=== PATIENT | female | born 1980 | race Two or more races ===

== ENCOUNTER 2017-08-19 21:15 | Emergency (ER) | payer MEDICAID, OTHER ==
--- NOTE | 2017-08-19 21:53 | EDPHY ---
H & P Time Seen by Provider: 08/19/17 21:49 HPI/ROS: CHIEF COMPLAINT: Right foot and tibia pain post glass table falling HISTORY OF PRESENT ILLNESS: 36-year-old female with up-to-date tetanus arrives via private vehicle complaining of right pretibial pain and right dorsal foot pain after heavy glass table fell and broke on these areas. She is able to bear weight albeit with pain. Denies paresthesia. Denies sensory or motor deficit. PHYSICAL EXAM (Prior to examination, patient consented to physical exam, hands were washed and my usual and customary physical exam procedures followed) 1) GENERAL: Well-developed, well-nourished, alert and oriented. Appears uncomfortable 2) HEAD: Normocephalic 3) HEENT: Pupils equal, round, reactive to light bilaterally. 4) LUNGS: Breathing comfortably. 5) MUSCULOSKELETAL: Right pretibial multiple superficial abrasions. Right dorsal foot multiple superficial abrasions. Tender to palpation pretibial region. No visible glass. Normal anatomic landmarks. Tender to palpation dorsal midfoot. No visible deformity or angulation. proximal tibia and fibula nontender .5th MT nontender negative Mcdowell test, compartments soft 6) SKIN: Multiple abrasions 7) VASCULAR: DP,PT pulses and cap refill present and brisk DIFFERENTIAL DIAGNOSIS: in no particular order including but not limited to fracture, sprain, compartment syndrome Procedure: Crutches indications for crutch use discussed with patient. Patient fitted for crutches by ER staff. Observed ambulating with crutches. I think the patient has the capacity to safely use crutches. Usual and customary crutch walking precautions provided Procedure: Splint A suzanne boot splint was applied by ER microwave technician. After application of the splint I returned and re-examined the patient. The splint was adequately immobilizing the joint and distal to the splint the patient's circulation and sensation were intact. Patient shows no signs of compartment syndrome. Was given orthopedic precautions. Smoking Status: Never smoked Constitutional: Initial Vital Signs Temperature (C) 36.7 C 08/19/17 21:21 Heart Rate 90 08/19/17 21:21 Respiratory Rate 16 08/19/17 21:21 Blood Pressure 134/93 H 08/19/17 21:21 O2 Sat (%) 96 08/19/17 21:21 O2 Delivery Mode Room Air Allergies/Adverse Reactions: No Known Allergies Allergy (Unverified 08/19/17 21:25) Home Medications: Medication Instructions Recorded NK [No Known Home Meds] 08/19/17 MDM/Departure - MDM Imaging Results: Imaging Impressions Foot X-Ray 08/19/17 21:50 Impression: No definite fracture. Clinical correlation is recommended involving the third toe. Results called and discussed with Dulce LICONA on 08/19/2017 at 22:30.. Tibia/Fibula X-Ray 08/19/17 21:51 Impression: Negative for fracture. Images reviewed by myself Medications Given: Discontinued Medications Hydrocodone Bitart/Acetaminophen (Fults 5/325) 1 tab PO EDNOW ONE Stop: 08/19/17 22:46 Last Admin: 08/19/17 22:52 Dose: 1 tab Hydrocodone Bitart/Acetaminophen (Fults 5/325mg Prepack#6) 1 btl TAKEHOME EDNOW ONE Stop: 08/19/17 22:47 Last Admin: 08/19/17 22:52 Dose: 1 btl Ibuprofen (Motrin) 800 mg PO EDNOW ONE Stop: 08/19/17 22:46 Last Admin: 08/19/17 22:52 Dose: 800 mg ED Course/Re-evaluation: 10:00 p.m.: Will obtain imaging studies of the patient's foot and tibia and fibula to evaluate for osseous injury and for radiopaque foreign body. She has multiple superficial abrasions none of which require closure. 10:40 p.m.: Care of patient under supervision of secondary supervising physician Dr Fulton . Patient was re-evaluated with serial examinations. On initial evaluation she had no complaints of pain to her toes. I discussed the radiology findings with the patient and with the the staff radiologist showing abnormality on one view of the 3rd toe. I re-evaluated the patient at 10:40 pm. And discussed the imaging results and re-examined her foot. At this time she states that she has pain from her toes to her knee. I examined her toes and all of her toes are tender. There are no visible signs of trauma however, no ecchymosis, intact skin. She has been informed that fracture is not fully ruled out. This time I think the patient can be discharged. She remains neurovascularly intact. She has been given Suzanne boot crutches and stressed the importance of follow-up with orthopedics Dr. Rosendo Deutsch. Analgesia provided as well. Usual and customary orthopedic precautions instructions provided. She feels comfortable being discharged. - Depart Disposition: Home, Routine, Self-Care Clinical Impression: Crush injury of foot Qualifiers: Encounter type: initial encounter Laterality: right Qualified Code(s): S97.81XA - Crushing injury of right foot, initial encounter Condition: Good Instructions: Hydrocodone/Acetaminophen (By mouth), Crush Injury (ED) Additional Instructions: Return to the ER immediately if you experience discoloration, have worsening pain, numbness, tingling, or any other symptoms that concern you. If you received x-rays in the emergency department today, be advised, that ligamentous , tendon, muscular, and other non-bony injury cannot be fully ruled out. Try to keep your affected extremity elevated above the level of your chest, and keep cold packs on the affected area, for the next 48 hours. Referrals: Rosendo Deutsch MD [Medical Doctor] - 2-3 days, call for appt.
[2017-08-19] MEDS ORDERED: HYDROCODONE/APAP 5/325 TAB PO ONE (22:45)
[2017-08-19] MEDS ORDERED: IBUPROFEN 800 MG TAB PO ONE (22:45)
[2017-08-19] MEDS ORDERED: HYDROCOD/APAP 5/325 PREPACK#6 BTL TAKEHOME ONE (22:46)
[2017-08-19 23:05] VITALS: BP 142/87
== END 2017-08-19 23:04 | disposition home or self-care (01) ==
DX: S97.81XA Crushing injury of right foot, initial encounter (principal); W20.8XXA Other cause of strike by thrown, projected or falling object, initial encounter
CPT/HCPCS: L4386

== ENCOUNTER 2017-09-12 02:14 | Emergency (ER) | payer OTHER ==
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
[2017-09-12 04:09] VITALS: BP 124/78
== END 2017-09-12 04:08 | disposition home or self-care (01) ==
DX: J02.8 Acute pharyngitis due to other specified organisms (principal); B97.89 Other viral agents as the cause of diseases classified elsewhere; N93.9 Abnormal uterine and vaginal bleeding, unspecified
CPT/HCPCS: 82465-90; 83718-90; 84478-90